=== PATIENT | female | born 1975 ===

== ENCOUNTER → 2022-12-26 | Outpatient (CLI) | payer BC ==
[2022-12-26 15:13] LABS: Basophils # (A) 0.08 X 10*3/uL (0.00-0.10); Basophils % (A) 1.2 %; Eosinophils # (A) 0.58 X 10*3/uL (0.04-0.35); Eosinophils % (A) 8.9 %; HCT 44.9 % (37.2-46.3); HGB 13.9 g/dL (12.0-15.0); Immature Grans, Automated 0.6 %; Lymphocytes # (A) 1.89 X 10*3/uL (0.90-5.00); MCH 30.3 pg (27.0-32.0); MCV 97.8 fL (80.0-97.0); Mean Platelet Volume 10.1 fL (9.5-12.2); Monocytes # (A) 0.69 X 10*3/uL (0.20-1.00); Monocytes % (A) 10.6 %; NRBC Per 100 WBC 0 /100 WBCS (0.0-0.0); Neutrophils # (A) 3.23 X 10*3/uL (1.80-7.70); Neutrophils % (A) 49.7 %; Platelet Count 245 X 10*3/uL (140-440); RBC 4.59 X 10*6/uL (4.10-5.20); RDW 14.3 % (11.5-14.5); WBC 6.51 X 10*3/uL (4.50-10.00)
[2022-12-26 16:01] LABS: Anion Gap 11.5 mmol/L (10.00-18.00); BUN/Creat Ratio 10.13 Ratio (12.00-20.00); Blood Urea Nitrogen 8.1 mg/dL (9.0-27.0); Calcium 8.8 mg/dL (8.7-10.3); Carbon Dioxide 25.5 mmol/L (20.0-27.5); Non-African American GFR(CKD) 87.2 (60.0-200.0); Potassium 4.1 mmol/L (3.5-5.5)
== END | disposition home or self-care (01) ==
LOC: LABPAT 10:23
PROVIDERS: ATTEND Obstetrics & Gynecology
DX: Z01.812 Encounter for preprocedural laboratory examination (principal)
CPT/HCPCS: 36415; 80048; 85025

== ENCOUNTER 2022-12-28 05:34 | Day surgery (SDC) | payer BC ==
[2022-12-28] MEDS ORDERED: DEXAMETHASONE SOD PHOSPHATE 4 MG/ML 1 ML VIAL IV ONE (06:00)
[2022-12-28] MEDS ORDERED: ONDANSETRON 4 MG/2 ML VIAL IVP ONE (06:00)
[2022-12-28] MEDS ORDERED: MIDAZOLAM 2 MG/2 ML VIAL IV PRN (06:00)
[2022-12-28] MEDS ORDERED: SCOPOLAMINE 1 MG/72 HR PATCH TRANSDERM ONE (06:00)
[2022-12-28] MEDS ORDERED: LACTATED RINGERS 1,000 ML IV SCH (06:00)
--- NOTE | 2022-12-28 06:25 | P.HPOB ---
History of Present Illness H&P Date: 12/28/22 Chief Complaint: menorrhagia 47 year old presents for [facility] BS using a kyra, possible [facility] BSO and diagnositic cystoscopy. Review of Systems All systems: negative Constitutional: Denies chills, Denies fever Eyes: denies blurred vision, denies pain Ears, nose, mouth and throat: Denies headache, Denies sore throat Cardiovascular: Denies chest pain, Denies shortness of breath Respiratory: Denies cough Gastrointestinal: Denies abdominal pain, Denies diarrhea, Denies nausea, Denies vomiting Genitourinary: Denies dysuria, Denies hematuria Musculoskeletal: Denies myalgias Integumentary: Denies pruritus, Denies rash Neurological: Denies numbness, Denies weakness Psychiatric: Denies anxiety, Denies depression Endocrine: Denies fatigue, Denies weight change Past Medical History Additional Past Medical History / Comment(s): heavy bleeding during periods at times. period off and on.. pain in left knee. History of Any Multi-Drug Resistant Organisms: None Reported Additional Past Surgical History / Comment(s): ganglion cyst removed. childhood- surgery on broken arm. Past Anesthesia/Blood Transfusion Reactions: No Reported Reaction Smoking Status: Current every day smoker - Past Family History Mother Additional Family Medical History / Comment(s): passed from [employer]. Medications and Allergies Home Medications Medication Instructions Recorded Confirmed Type Acetaminophen [Tylenol Extra 500 mg PO DIRECTED PRN 12/27/22 12/27/22 History Strength] Unk Otc Naproxen 1 tab PO DIRECTED PRN 12/27/22 12/27/22 History Allergies Allergy/AdvReac Type Severity Reaction Status Date / Time Sulfa (Sulfonamide Allergy Swelling Verified 12/27/22 10:01 Antibiotics) of throat. skin itching Exam Osteopathic Statement: *. No significant issues noted on an osteopathic structural exam other than those noted in the History and Physical/Consult. Intake and Output 12/27/22 12/27/22 12/28/22 14:59 22:59 06:59 Other: Weight 92.986 kg HEart: RRR Lungs: CTAB Abdomen: soft, nontender Extremeties: neg mariposa's Assessment and Plan (1) Menorrhagia Current Visit: Yes Status: Acute Code(s): N92.0 - EXCESSIVE AND FREQUENT MENSTRUATION WITH REGULAR CYCLE SNOMED Code(s): 327159162 (2) Dysmenorrhea Current Visit: Yes Status: Acute Code(s): N94.6 - DYSMENORRHEA, UNSPECIFIED SNOMED Code(s): 666770039 Plan: 1. Total laparoscopic hysterectomy, bilateral salpingectomy,possible BSO using da kyra, diagnostic cystoscopy
[2022-12-28] MEDS ORDERED: ROCURONIUM 10 MG/ML (5 ML VIAL) IV ONE (07:09)
[2022-12-28] MEDS ORDERED: PROPOFOL 10 MG/ML 20 ML VIAL IV ONE (07:09)
[2022-12-28] MEDS ORDERED: fentaNYL (PF) 50 MCG/ML 2 ML AMP ONE (07:09)
[2022-12-28] MEDS ORDERED: HYDROmorphone (PF) 1 MG/ML ONE (07:09)
[2022-12-28] MEDS ORDERED: LIDOCAINE 2% INJ 20 MG/ML (2 ML VIAL) ONE (07:09)
[2022-12-28] MEDS ORDERED: SUCCINYLCHOLINE CHLORIDE 200 MG/10 ML VIAL IV ONE (07:09)
[2022-12-28] MEDS ORDERED: KETOROLAC 15 MG/ML 1 ML VIAL ONE (07:09)
[2022-12-28] MEDS ORDERED: GLYCOPYRROLATE 0.2 MG/ML 2 ML VIAL ONE (07:09)
[2022-12-28] MEDS ORDERED: MIDAZOLAM 2 MG/2 ML VIAL ONE (07:09)
[2022-12-28] MEDS ORDERED: NEOSTIGMINE 1 MG/ML 10 ML VIAL ONE (07:09)
[2022-12-28] MEDS ORDERED: BUPIVACAINE (PF) 0.25% 30 ML VIAL SQ ONE ×2 (07:39→08:45)
--- NOTE | 2022-12-28 08:52 | P.OP ---
Date of Procedure: 12/28/22 Preoperative Diagnosis: 1. dysmenorrhea 2. menorrhagia Postoperative Diagnosis: same Procedure(s) Performed: Total Laparoscopic hysterectomy bilateral salpingectomy using da crescencio and diagnostic cystoscopy Anesthesia: JOHN Surgeon: Nory Kay Training Project Manager #1: Liz Demarco Estimated Blood Loss (ml): 20 IV fluids (ml): 600 Urine output (ml): 200 Pathology: other (uterus, cervix, bilateral fallopian tubes) Condition: stable Disposition: PACU Operative Findings: Uterus sounded to 10 cm. Cervix was 3 cm in diameter. Description of Procedure: Patient taken the operating room where general anesthesia was obtained without difficulty. She is prepped and draped in normal sterile fashion dorsal lithotomy position, legs placed in the Ralph stirrups. Weighted speculum placed in the vagina and the anterior lip the cervix was grasped with single-tooth tenaculum. The uterus sounded to 10 cm and the cervix diameter was 3 cm. The appropriate manipulator tip and ring were placed on the Berna manipulator. The Berna manipulator was then placed in the uterus. Wakefield catheter was also placed. Attention was then turned to the abdomen and gloves were changed. A 5 mm supraumbilical incision was made the scalpel and a 5 mm optical trocar was placed under direct visualization. 10 cm to the right of this and 2 cm down a 5 mm incision was made and 8 mm da Crescencio port was placed under direct visualization. Same measurements on the opposite side of the patient's abdomen, the 5 mm incision was made and 8 mm da Crescencio port was placed under direct visualization. In the left upper quadrant a 10 mm incision was made and a 10 mm optical trocar was placed under direct visualization. The 5 mm optical trocar was then replaced with the 8 mm da Crescencio camera port. The robot was docked on patient's left side. The camera was introduced and then the monopolar curved scissor and the vessel sealer placed under direct visualization. I broke scrub and went to the physician console. The left mesosalpinx was sealed and cut with the vessel sealer to remove the left fallopian tube. The left round ligament and utero-ovarian ligaments were sealed with the vessel sealer and cut. The posterior leaf of the broad ligament was taken down using the monopolar curved scissors. Anterior leaf of the broad ligament was then taken down using the monopolar curved scissors. The uterine artery was sealed and cut with the vessel sealer. The bladder flap was then started using the monopolar curved scissors. Attention was then turned to the right side of the patient's anatomy and the right mesosalpinx was sealed and cut with the vessel sealer to remove the right fallopian tube. The right round ligament and the right utero-ovarian ligaments were sealed and cut with the vessel sealer. Posterior leaf of the broad ligament was taken down using the monopolar curved scissors and the anterior leaf was taken down using the monopolar curved scissors. The uterine artery was sealed and cut with the vessel sealer. The bladder flap was then finished on this side. Anterior colpotomy was made using the monopolar curved scissors. The rest of the uterus was from the vaginal cuff by following the ring around with the monopolar curved scissors through the uterosacral ligaments back to the anterior portion. Once the uterus and cervix were amputated they were pulled through the vaginal cuff. Hemostasis was assured. The instruments were changed for the faustino suture cut though the vessel sealer was used as a grasper at this time. The vaginal cuff was then closed using O stratafix barbed suture in a running fashion. Hemostasis was again assured and the pelvis was irrigated. All instruments were removed from the abdomen and the robot was undocked. I scrubbed back in to perform a cystoscopy. There were jets from both ureteral orifices. The abdominal incisions were closed with 4-0 Vicryl in a subcuticular fashion. Patient tolerated the procedure well, sponge and instrument counts correct 2 and she was taken to recovery room in stable condition condition
[2022-12-28] MEDS: HYDROmorphone 0.5 MG/0.5 ML SYRINGE IVP PRN ×3 (09:11→09:45)
[2022-12-28] MEDS ORDERED: LACTATED RINGERS 1,000 ML IV ONE (09:12)
[2022-12-28] MEDS ORDERED: Acetaminophen-Codeine 300-30mg TAB PO PRN (09:55)
[2022-12-28] MEDS ORDERED: KETOROLAC 15 MG/ML 1 ML VIAL IVP PRN (09:55)
[2022-12-28] MEDS ORDERED: NON FORMULARY DRUG (Acetaminophen [Tylenol Extra Strength] 500 MG Packet) PO PRN (09:55)
[2022-12-28] MEDS ORDERED: SIMETHICONE 80 MG CHEWABLE PO PRN (09:55)
[2022-12-28] MEDS ORDERED: ONDANSETRON 4 MG/2 ML VIAL IVP PRN (09:55)
[2022-12-28] MEDS: SENNOSIDES-DOCUSATE SODIUM 1 EACH TAB PO SCH (12:37)
[2022-12-28] MEDS: ACETAMINOPHEN TAB 325 MG TAB PO PRN ×2 (13:33→20:19)
[2022-12-28] MEDS: Acetaminophen-Codeine 300-30mg TAB PO PRN (23:17)
[2022-12-29] MEDS: Acetaminophen-Codeine 300-30mg TAB PO PRN ×2 (04:04→08:03)
[2022-12-29] MEDS: SENNOSIDES-DOCUSATE SODIUM 1 EACH TAB PO SCH (06:18)
--- NOTE | 2022-12-29 07:16 | P.DS ---
Providers Expected date of discharge: 12/29/22 Attending physician: Nory Kay Primary care physician: Stated None - Discharge Diagnosis(es) (1) Menorrhagia Current Visit: Yes Status: Resolved (2) Dysmenorrhea Current Visit: Yes Status: Resolved (3) History of robot-assisted laparoscopic hysterectomy Current Visit: Yes Status: Acute Hospital Course: presented for TLHBSO using da Crescencio and diagnostic cystoscopy. She underwent this procedure without complication. Postoperatively she is doing very well. Pain is controlled. She denies nausea, vomiting, chest pain, shortness of breath or calf pain. Her incisions are clean, dry, intact. Patient will be discharged home postoperative day #1 in stable condition to follow-up with me in 3 weeks. Plan - Discharge Summary Discharge Rx Participant: No New Discharge Prescriptions: New Acetaminophen-Codeine 300-30mg [Tylenol #3] 1 - 2 tab PO Q6H PRN #20 tablet PRN Reason: Pain Ibuprofen [Motrin] 600 mg PO Q6HR PRN #30 tab PRN Reason: Mild Pain Or Fever >= 100.5 No Action Unk Otc Naproxen 1 tab PO DIRECTED PRN PRN Reason: Pain Acetaminophen [Tylenol Extra Strength] 500 mg PO DIRECTED PRN PRN Reason: Pain Discharge Medication List Acetaminophen [Tylenol Extra Strength] 500 mg PO DIRECTED PRN 12/27/22 [History] Unk Otc Naproxen 1 tab PO DIRECTED PRN 12/27/22 [History] Acetaminophen-Codeine 300-30mg [Tylenol #3] 1 - 2 tab PO Q6H PRN #20 tablet 12/29/22 [Rx] Ibuprofen [Motrin] 600 mg PO Q6HR PRN #30 tab 12/29/22 [Rx] Follow up Appointment(s)/Referral(s): Nory Kay DO [Doctor of Osteopathic Medicine] - 3 Weeks Discharge Disposition: HOME SELF-CARE
[2022-12-29 08:19] LABS: Basophils % (A) 0 %; Eosinophils # (A) 0.2 k/uL (0-0.7); Eosinophils % (A) 1 %; HCT 40.2 % (34.0-46.0); HGB 12.8 gm/dL (11.4-16.0); Lymphocytes # (A) 2.1 k/uL (1.0-4.8); Lymphocytes % (A) 20 %; MCH 30.1 pg (25.0-35.0); MCHC 31.9 g/dL (31.0-37.0); MCV 94.2 fL (80.0-100.0); Mean Platelet Volume 7.5; Monocytes # (A) 0.5 k/uL (0-1.0); Monocytes % (A) 5 %; Neutrophils # (A) 7.6 k/uL (1.3-7.7); Neutrophils % (A) 72 %; Platelet Count 262 k/uL (150-450); RBC 4.26 m/uL (3.80-5.40); RDW 13.9 % (11.5-15.5); WBC 10.5 k/uL (3.8-10.6)
[2022-12-29 08:36] VITALS: BP 129/77; PULSE 74; RESP 16; TEMP 97.5
[2022-12-29] MEDS ORDERED: ACETAMINOPHEN TAB 325 MG TAB PO PRN (08:50)
[2022-12-29] MEDS ORDERED: IBUPROFEN 600 MG TAB PO SCH (09:00)
== END 2022-12-29 09:00 | disposition home or self-care (01) ==
LOC: OR 05:34 → 4FBP 08:55 → OR 12-29 09:00
PROVIDERS: ATTEND Obstetrics & Gynecology
DX: C54.1 Malignant neoplasm of endometrium (principal); E28.2 Polycystic ovarian syndrome; F41.9 Anxiety disorder, unspecified; F32.A Depression, unspecified; F17.210 Nicotine dependence, cigarettes, uncomplicated; Z88.2 Allergy status to sulfonamides; Z91.048 Other nonmedicinal substance allergy status; Z79.1 Long term (current) use of non-steroidal anti-inflammatories (NSAID); Z79.899 Other long term (current) drug therapy
CPT/HCPCS: 58571; S2900; 81025; 85025; 86850; 86900; 86901; 88309